=== PATIENT | female | born 1975 | race Caucasian/White ===

== ENCOUNTER 2020-07-11 15:04 | Emergency (ER) | payer OTHER ==
[2020-07-11 15:13] VITALS: BP 114/81; PULSE 81; TEMP 98.4; BMI 31.2
[2020-07-11] MEDS ORDERED: ACETAMINOPHEN 1000 MG/100 ML VIAL (NON FORMULARY) IVPB ONE (15:41)
[2020-07-11] MEDS ORDERED: ACETAMINOPHEN INJECTION 100 ML IVPB ONE (15:50)
[2020-07-11] MEDS ORDERED: LACTATED RINGERS SOLUTION 1000 ML INFUS.BAG IV ONE (16:03)
[2020-07-11 16:31] LABS: PH,URINE 5.5 (5.0-8.0); URINE APPEARANCE CLEAR; URINE BILIRUBIN NEGATIVE (NEGATIVE); URINE COLOR YELLOW; URINE GLUCOSE (UA) NEGATIVE (NEGATIVE); URINE KETONE NEGATIVE (NEGATIVE); URINE LEUK ESTERASE NEGATIVE (NEGATIVE); URINE NITRITE NEGATIVE (NEGATIVE); URINE PROTEIN NEGATIVE (NEGATIVE); URINE UROBILINOGEN 0.2 mg/dL (0.2-1.0)
[2020-07-11 16:34] LABS: HCG,QUALITATIVE URINE Negative
[2020-07-11 16:35] LABS: BASO % 0.4 % (0-2.0); EOS % 3.5 % (0-4.5); HEMATOCRIT 37.8 % (32.4-45.2); HEMOGLOBIN 12.5 GM/dL (10.7-15.3); LYMPH % 29.1 % (8-40); MCH 29.4 pg (25.7-33.7); MCHC 32.9 g/dl (32.0-36.0); MEAN CELL VOLUME 89.2 fl (80-96); MEAN PLT VOLUME 7.5 fl (7.5-11.1); MONO % 7.8 % (3.8-10.2); NEUT % 59.2 % (42.8-82.8); PLATELET COUNT 372 K/MM3 (134-434); RBC 4.24 M/mm3 (3.60-5.2); RDW 14.2 % (11.6-15.6); WHITE BLOOD COUNT 9.6 K/mm3 (4.0-10.0)
[2020-07-11 16:42] LABS: INR 0.96 (0.83-1.09); PROTHROMBIN TIME (PATIENT) 11.8 SEC (9.7-13.0)
[2020-07-11 16:44] LABS: ACTIVATED PTT 25.6 SECONDS (25.2-36.5)
[2020-07-11 16:51] LABS: CALCIUM 9.1 mg/dL (8.5-10.1)
[2020-07-11 16:52] LABS: ALBUMIN 3.6 g/dl (3.4-5.0); BLOOD UREA NITROGEN 8.5 mg/dL (7-18)
[2020-07-11 16:55] LABS: CREATININE 0.8 mg/dL (0.55-1.3)
[2020-07-11 16:56] LABS: BILIRUBIN,TOTAL 0.4 mg/dL (0.2-1)
[2020-07-11 16:57] LABS: TOT PROT 7.4 g/dl (6.4-8.2)
[2020-07-11] MEDS ORDERED: METOCLOPRAMIDE HCL INJECTION 10 MG/2 ML VIAL IVPB ONE (18:24)
[2020-07-11] MEDS ORDERED: morphine CARPU-JECT 4 MG/1 ML DISP.SYRIN IVPUSH ONE (18:24)
[2020-07-11] MEDS ORDERED: METOCLOPRAMIDE HCL INJECTION 10 MG/2 ML VIAL ONE (18:38)
[2020-07-11] MEDS ORDERED: morphine SULFATE 4 MG/ML VIAL ONE (18:40)
== END 2020-07-11 20:53 | disposition home or self-care (01) ==
LOC: JER 15:04
PROC: 3E0333Z Introduction of Anti-inflammatory into Peripheral Vein, Percutaneous Approach (ICD-10-PCS; principal; 2020-07-11)
PROC: 3E033GC Introduction of Other Therapeutic Substance into Peripheral Vein, Percutaneous Approach (ICD-10-PCS; 2020-07-11)
PROC: 3E033NZ Introduction of Analgesics, Hypnotics, Sedatives into Peripheral Vein, Percutaneous Approach (ICD-10-PCS; 2020-07-11)
DX: R10.31 Right lower quadrant pain (principal)
CPT/HCPCS: 36415; 74177-TC; 76830-TC; 80053; 81003; 83735; 84703; 85025; 85610; 85730; 86850; 86900; 86901; 87086; 99285-25; J0131; Q9967